=== PATIENT | female | born 1930 | race Caucasian/White ===

== ENCOUNTER 2021-02-12 14:46 | Inpatient (IN) | payer MEDICARE, BC ==
[~2021-02-12] VITALS: Ht 165.1 cm; Wt 50.0 kg
[~2021-02-12 14:46] MED LIST: ANTIVERT 25MG25 MG PO; ATIVAN 0.50.5 MG/TAB PO; ATIVAN PO; BENTYL 20MG20 MG/TAB PO; CEPHALEXIN500 M1 PO; FLAGYL500 MG PO; HYOMAX; IMODIUM 2MG CAPS2 MG PO; IMODIUM2 MG PO; INDERAL LA120 MG PO; INDERAL PO; LUTEIN PO; NEURONTIN300 MG/CAP PO; PRILOSEC 20MG20 MG PO; TYLENOL 325MG325 MG PO; VANCOCIN H125 MG/CAP PO; VERELAN120 MG PO; VITAMIN D PO; ZOLOFT; ZOLOFT 50MG50 MG PO
[2021-02-12 15:25] LABS: BASO % 0.2 % (0.0-2.0); EOS % 0.1 % (0-4.0); GRAN # 10.3 (1.4-6.5); GRAN % 82.5 % (42.2-75.2); HEMATOCRIT 42.8 % (37.0-47.0); HEMOGLOBIN 13.7 g/dl (12.5-16.0); LYMPH # 0.9 (1.2-3.4); LYMPH % 6.8 % (20.0-51.0); MEAN CELL VOLUME 92 fl (80.0-100.0); MEAN CORPUSCULAR HEMOGLOBIN 30 pg (27.0-31.0); MEAN CORPUSCULAR HGB CONC 32 g/dl (33.0-37.0); MONO # 1.3 (0.1-0.6); MONO % 10.2 % (1.7-9.3); PLATELET COUNT 197 K/mm3 (130-400); RED BLOOD COUNT 4.63 M/mm3 (4.10-5.30); REDCELL DISTRIBUTION WIDTH-CV 13.7 % (11.5-14.5)
[2021-02-12 15:33] LABS: INR 1.1 (0.8-3.0); PROTHROMBIN TIME 12.4 SECONDS (9.7-12.8)
[2021-02-12 15:35] LABS: COLLECTION METHOD CLEAN CATCH
[2021-02-12 15:45] LABS: BILIRUBIN,TOTAL 1.1 mg/dL (0.0-1.0); CALCIUM 9.3 mg/dL (8.4-10.2); CREATININE, serum 0.85 (0.52-1.25); TOTAL PROTEIN 6.7 gm/dL (6.4-8.2)
[2021-02-12 15:46] LABS: MUCOUS Present /lpf; PH 5 (5-8); SQUAMOUS EPITHELIAL 0-2 /hpf; URINE APPEARANCE Cloudy; URINE BACTERIA Many /hpf; URINE BILIRUBIN Positive (NEGATIVE); URINE BLOOD 3+ (NEGATIVE); URINE COLOR Amber; URINE GLUCOSE Negative (NEGATIVE); URINE KETONE 1+ (NEGATIVE); URINE LEUKOCYTE ESTERASE Trace (NEGATIVE); URINE NITRATE Negative (NEGATIVE); URINE PROTEIN(semi-quant) 2+ (NEGATIVE); URINE UROBILINOGEN Negative (NEGATIVE)
[2021-02-12 15:54] LABS: TROPONIN-I 0.021 ng/mL (0.000-0.035)
--- NOTE | 2021-02-12 18:02 | NUR ---
PT ACTIVELY HALLUCINATING BUGS IN THE ROOM AND PT THINKING SHE HAS TOILET PAPER IN HER HANDS WHEN SHE DOES NOT, PT DENIES PAIN WHEN ASKED, STATES SHE HAS NOT HAD A BM IN A FEW DAYS, PT HAD RED SPOT ON HER COCCYX BUT BLANCHES, PT HAS REDNESS TO BACK AND MARY ARMS AND KNEES. PT HAS UNSTEADY GAIT, BEDSIDE COMMODE USED X1 ASSIST. CALLED PT PHARMACY FOR ACCURATE MED LIST. ASSESSMENT PERFORMED, FLUIDS INFUSING, NO OTHER NEEDS.
[2021-02-12 18:09] VITALS: BP 107/40; PULSE 71; TEMP 97.9
[2021-02-12 19:33] VITALS: BP 101/51; PULSE 82; TEMP 98
[2021-02-12] MEDS ORDERED: B-121000 MCG PO (19:41)
[2021-02-12] MEDS ORDERED: MASON NATURAL2000 IU PO (19:43)
[2021-02-13 00:02] VITALS: BP 105/41; PULSE 65; TEMP 98
[2021-02-13 03:37] VITALS: BP 108/51; PULSE 76; TEMP 97.9
--- NOTE | 2021-02-13 05:07 | NUR ---
PATIENT HAD VERY RESTFUL NIGHT, WAKING ONLY ON OCCASION WHEN BEING TURNED OR MOVED. PATIENT IS VERY SOFT SPOKEN AND ENJOYS EATING ICE CHIPS IT IS NOTED THAT SHE COUGHED SEVERAL TIMES WHEN EATING ICE CHIPS. PATIENT IS VERY PLESANT AND REMAINS IN GOOD SPIRITS. NO EVIDENCE OF HALLUCINATIONS THIS SHIFT, WAS ABLE TO ANSWER ALL QUESTIONS APPROPRIATELY.
--- NOTE | 2021-02-13 07:14 | NUR ---
Received shift report from STAN Robledo, patient is lying in bed, awake and oriented.
[2021-02-13 07:42] LABS: ALBUMIN 3.5 gm/dL (3.5-5.0); BILIRUBIN,TOTAL 1.1 mg/dL (0.0-1.0); CREATININE, serum 0.84 (0.52-1.25); PHOSPHOROUS 4.3 mg/dL (2.5-4.5); POTASSIUM 3.9 mmol/L (3.4-5.0); TOTAL PROTEIN 6.1 gm/dL (6.4-8.2)
--- NOTE | 2021-02-13 07:45 | NUR ---
Patient is lying in bed inclined on her right side, she is alert and oriented x 3, vss, was repositioned, and ordered breakfast. She reports pain in her right back. Patient presents multiple erythemas in her body. Call [facility] within reach. No further needs right now.
[2021-02-13 07:58] VITALS: BP 98/64; PULSE 72; TEMP 97.5
[2021-02-13 08:09] LABS: BASO % 0.3 % (0.0-2.0); EOS % 0.4 % (0-4.0); GRAN # 8.6 (1.4-6.5); GRAN % 78.8 % (42.2-75.2); HEMATOCRIT 39.5 % (37.0-47.0); HEMOGLOBIN 12.8 g/dl (12.5-16.0); LYMPH # 1.2 (1.2-3.4); MEAN CELL VOLUME 93 fl (80.0-100.0); MEAN CORPUSCULAR HEMOGLOBIN 30 pg (27.0-31.0); MEAN CORPUSCULAR HGB CONC 32 g/dl (33.0-37.0); MEAN PLATELET VOLUME 10.4 fl (7.4-10.4); MONO % 9.2 % (1.7-9.3); PLATELET COUNT 203 K/mm3 (130-400); RED BLOOD COUNT 4.26 M/mm3 (4.10-5.30); REDCELL DISTRIBUTION WIDTH-CV 14.4 % (11.5-14.5)
[2021-02-13 11:44] VITALS: BP 114/48; PULSE 72; TEMP 97.8
--- NOTE | 2021-02-13 11:48 | NUR ---
Flyer Maker attended clinical rounds with the team. Patient is tearful during rounds as she is still grieving the loss of her in late 2019. Following rounds, DAIANA met with patient and two of her children, Alpa (ph#[phone]) and Juan Alberto (ph#[phone]) who are at bedside. Patient lives alone outside of [place] and sees Dr. Redman for primary care. Patient obtains medications from [facility]. Patient reports she has a paid caregiver, Negrita Blackwell who comes out to her home three times a week for half a day to assist with housekeeping, yard work, and grocery shopping. Negrita also picks up patient's medications for her. Patient reports she does not use any DME and is normally independent with ADLS. Patient's daughter Alpa advised that a walker has been suggested, but patient does not feel she needs it. Patient has Advance Directives in EMR. SW reviewed discharge disposition with patient and her children who feel patient would benefit from rehab. SW reviewed options including local SNFs and [facility]. Patient and her children's preferences are 1) [place] [facility] and 2) [place] [facility]. Patient does not want to go to [facility] as that's where her was before he . Patient's children would also prefer patient not go to [facility]. DAIANA left a message for Brodie at [facility] and faxed referral. DAIANA contacted YEHUDA Salmon Director to give consult. Discharge Plan: Referrals out to [place] [facility] and [facility]. Awaiting screens.
[2021-02-13 17:43] VITALS: BP 131/44; PULSE 79; TEMP 98.2
--- NOTE | 2021-02-13 19:05 | NUR ---
Received report from Devang. Patient had just been cleaned due to bowel movement. As per day shift nurse, that was her 4th BM today. Repositioned patient in bed.
[2021-02-13 20:01] VITALS: BP 112/53; PULSE 91; TEMP 98.1
--- NOTE | 2021-02-13 21:05 | NUR ---
Patient is tearful saying she's been accused of not taking her Lorazepam. She said that she thinks she's having hallucinations as she can hear like the sound of an airplane. I told her the sound that was in her room right now is the IV machine and pointed out which one it is. Informed her as well that there are no ordered Lorazepam for her and nobody was accusing her. She said she just wants to sleep tonight. Bed alarm on. Call light within reach.
[2021-02-14] VITALS (7 sets, daily range): BP systolic 137–169; BP diastolic 53–92; PULSE 81–95; TEMP 98–98.4
--- NOTE | 2021-02-14 05:44 | NUR ---
Patient had hallucinations at around 2am. She said she heard voices outside that were talking bad things about her, which are two male voices and a female. Informed her that there are no male staff in our department right now. She is tearful. Reoriented patient. She was able to sleep at around 4am.
[2021-02-14 07:16] LABS: BASO % 0.4 % (0.0-2.0); EOS # 0.2 (0.0-0.7); EOS % 3.2 % (0-4.0); GRAN # 3.9 (1.4-6.5); HEMOGLOBIN 11.1 g/dl (12.5-16.0); LYMPH # 0.9 (1.2-3.4); LYMPH % 15.9 % (20.0-51.0); MEAN CELL VOLUME 89 fl (80.0-100.0); MEAN CORPUSCULAR HEMOGLOBIN 30 pg (27.0-31.0); MEAN CORPUSCULAR HGB CONC 33 g/dl (33.0-37.0); MONO # 0.6 (0.1-0.6); MONO % 11.1 % (1.7-9.3); PLATELET COUNT 158 K/mm3 (130-400); RED BLOOD COUNT 3.75 M/mm3 (4.10-5.30); REDCELL DISTRIBUTION WIDTH-CV 14.2 % (11.5-14.5)
[2021-02-14 07:25] LABS: ALBUMIN 2.8 gm/dL (3.5-5.0); BILIRUBIN,TOTAL 0.8 mg/dL (0.0-1.0); CALCIUM 8.6 mg/dL (8.4-10.2); CREATININE, serum 0.54 (0.52-1.25); POTASSIUM 3.5 mmol/L (3.4-5.0); TOTAL PROTEIN 5.2 gm/dL (6.4-8.2)
[2021-02-14 07:26] LABS: HEMATOCRIT 33.3 % (37.0-47.0)
--- NOTE | 2021-02-14 09:20 | NUR ---
Pt awake and alert upon entry, no C/O pain at this time. Shift assessments complete, left Pt sitting in the recliner, call light in reach.
--- NOTE | 2021-02-14 13:21 | NUR ---
Initial visit; Patient thanked Therapist Physical for looking in on her, offering prayer and God's blessings and to keep her in Therapist Physical's prayers.
--- NOTE | 2021-02-14 16:18 | NUR ---
Unemployment Examiner contacted Melva at [facility] and faxed clinical updates. Melva advised they are able to accept patient. DAIANA attended clinical rounds with the team and advised both the Hospitalist and patient's family that [facility] can accept. Patient's family is agreeable to this and advised they would tour [facility] later today. DAIANA notified [facility] Director that [facility] accepted. Discharge Plan: [facility] SNF
--- NOTE | 2021-02-14 18:10 | NUR ---
Pt resting in the room today, no C/O pain throughout the day. Pt has been up in the recliner and has returned to bed as of this note. Pt ambulates well with walker and minimal assistance. VS have remained stable. No noted hallucinations when with pt during the day.
--- NOTE | 2021-02-14 20:35 | NUR ---
Patient assessed at this time. Alert and oriented x 4. Does not always make needs known. High fall risk precautions in place. Peripheral INT to right forearm flushed. Site without redness, warmth, swelling, and pain. Denies SOB and dyspnea. LS CTA. Respirations even and unlabored. HRR. Telemetry in place: normal sinus. Capillary refill less than 3 seconds. Non-tenting skin turgor. BSAx4. Abdomen soft and non-tender. No edema. Patient has bruises in various stages of healing to back, BUE, and BLE. Patient complaining of insomnia and requested something to help her sleep. Called [facility]. New order for Melatonin received, and given to patient as requested. Voices no further questions, needs, or concerns at this time. Resting in bed with call light within reach.
[2021-02-15] VITALS (8 sets, daily range): BP systolic 128–182; BP diastolic 61–90; PULSE 70–155; TEMP 97.4–98.4
--- NOTE | 2021-02-15 05:47 | NUR ---
Patient has been resting in bed with call light within reach. Voices no questions, needs, or concerns at this time. Reports that she was able to get some resting with the melatonin.
[2021-02-15 06:01] LABS: BASO % 0.3 % (0.0-2.0); EOS # 0.1 (0.0-0.7); EOS % 2.8 % (0-4.0); GRAN # 2.8 (1.4-6.5); GRAN % 70.1 % (42.2-75.2); LYMPH # 0.6 (1.2-3.4); LYMPH % 16.3 % (20.0-51.0); MEAN CELL VOLUME 90 fl (80.0-100.0); MEAN CORPUSCULAR HEMOGLOBIN 30 pg (27.0-31.0); MEAN CORPUSCULAR HGB CONC 33 g/dl (33.0-37.0); MEAN PLATELET VOLUME 10.5 fl (7.4-10.4); MONO # 0.4 (0.1-0.6); MONO % 10.2 % (1.7-9.3); PLATELET COUNT 145 K/mm3 (130-400); RED BLOOD COUNT 3.98 M/mm3 (4.10-5.30); REDCELL DISTRIBUTION WIDTH-CV 14.2 % (11.5-14.5)
[2021-02-15 06:07] LABS: HEMATOCRIT 35.9 % (37.0-47.0)
[2021-02-15 06:14] LABS: CALCIUM 8.6 mg/dL (8.4-10.2); CREATININE, serum 0.42 (0.52-1.25); POTASSIUM 3.1 mmol/L (3.4-5.0)
--- NOTE | 2021-02-15 08:00 | NUR ---
Pt's heart in v-tach, pt resting in bed and asking to use the restroom. ARNALDO Sharp notified and Negrita with RT in room to do EKG. Pt assisted to the restroom. She was standby assist. Assisted back to bed for EKG
--- NOTE | 2021-02-15 12:58 | NUR ---
Follow-up visit; Patient glad to see Clutch Assembler for a visit. Nurse came by so Clutch Assembler wished Lisa well and offered God's blessings.
--- NOTE | 2021-02-15 15:12 | NUR ---
Algology Teacher attended clinical rounds with the team and patient is not ready for discharge today. SW contacted Melva at [facility] and faxed clinical updates. SW contacted patient's son, Juan Alberto who advised the tour yesterday went well and the plan is still for [facility] SNF upon discharge. Discharge Plan: [facility] SNF
--- NOTE | 2021-02-15 15:40 | NUR ---
Report given to Andria RN
[2021-02-16 04:55] VITALS: BP 162/70; PULSE 64; TEMP 97.2
--- NOTE | 2021-02-16 05:34 | NUR ---
PATIENT RESTED QUIETLY IN BED THROUGHOUT THE NIGHT. NO NEW CONCERNS NOTED OR REPORTED BY PATIENT.
--- NOTE | 2021-02-16 07:00 | NUR ---
Report received from STAN Qureshi. pT in bed resting, awake and alert, denies needs, will continue to montior.
[2021-02-16 07:38] VITALS: BP 151/51; PULSE 65; TEMP 97.9
[2021-02-16 08:02] LABS: MEAN CELL VOLUME 91 fl (80.0-100.0); MEAN CORPUSCULAR HEMOGLOBIN 30 pg (27.0-31.0); MEAN CORPUSCULAR HGB CONC 33 g/dl (33.0-37.0); MEAN PLATELET VOLUME 10.4 fl (7.4-10.4); PLATELET COUNT 144 K/mm3 (130-400); RED BLOOD COUNT 3.72 M/mm3 (4.10-5.30); REDCELL DISTRIBUTION WIDTH-CV 14.1 % (11.5-14.5)
[2021-02-16 08:09] LABS: HEMATOCRIT 33.8 % (37.0-47.0)
[2021-02-16 08:22] LABS: CALCIUM 8.5 mg/dL (8.4-10.2); CREATININE, serum 0.43 (0.52-1.25); MAGNESIUM 1.7 mg/dL (1.6-2.3); POTASSIUM 3.7 mmol/L (3.4-5.0)
[2021-02-16] MEDS ORDERED: OMNICEF 300MG300 MG PO (09:29)
[2021-02-16] MEDS ORDERED: MELATONIN5 M1 SL (09:30)
--- NOTE | 2021-02-16 09:38 | NUR ---
DAIANA informed of DC. DAIANA callled [facility] for notification for the discharge. Faxed dc orders awaiting response for transportation. WIll continue update.
--- NOTE | 2021-02-16 10:45 | NUR ---
Assessment charted. Pt c/o pain to neck, soreness from fall and to sacrem, stage 2 found and mepilex applied, pt turning on side to offset pressure and pillows placed. pt anticipating dishcarge to [facility] today, asked terri AHMADI about timeframe and she is waiting on a call back from them. Doing well, will continue to monitor.
--- NOTE | 2021-02-16 11:00 | NUR ---
DAIANA facilitated transfer to [facility] will transfer at 11:30 a.m. SW notifed nurse of transfer plan. Nothing follows.
[2021-02-16 11:11] VITALS: BP 151/51; PULSE 65; TEMP 97.9
--- NOTE | 2021-02-16 11:41 | NUR ---
Report called to [facility] nurse on [address] that will be taking pt. [facility] staff member came and picked up pt in wheelchair. Pt left with some of belongings and rest of belongings were sent with daughter Alpa who took them over to [facility]. INT dc'd,tip intact. Transfer completed for pt to go to rehab, criteria met.
[2021-06-08] MEDS ORDERED: ATIVAN 0.50.5 MG/TAB PO (21:49)
[2021-06-08] MEDS ORDERED: LOMOTIL 0.025 M1 TAB PO (21:50)
[2021-06-08] MEDS ORDERED: COLESTID 1GM1 G PO (21:50)
[2021-06-09] MEDS ORDERED: PRESERVISION1 SGL PO (00:44)
[2021-06-11] MEDS ORDERED: ALDACTONE 25MG25 M1 PO (14:08)
[2021-06-11] MEDS ORDERED: LASIX 20MG TABL20 MG PO (14:09)
[2021-09-04] MEDS ORDERED: NYSTATIN OR100 MU/ML PO (09:10)
[2021-09-04] MEDS ORDERED: COLESTID 1GM1 G PO (09:10)
[2021-09-04] MEDS ORDERED: ALDACTONE 25MG25 M1 PO (09:11)
[2021-09-04] MEDS ORDERED: NORCO 325 MG-51 TAB PO (09:11)
[2021-09-04] MEDS ORDERED: INDERAL LA120 MG PO (09:11)
[2021-09-04] MEDS ORDERED: TYLENOL 325MG325 MG PO (09:11)
[2021-09-04] MEDS ORDERED: DUO-KAPS1 CAP PO (09:12)
[2021-09-04] MEDS ORDERED: MASON NATURAL2000 IU PO (09:12)
[2021-09-04] MEDS ORDERED: PRESERVISION1 SGL PO (09:12)
[2021-09-04] MEDS ORDERED: PRILOSEC 20MG20 MG PO (09:12)
[2021-09-04] MEDS ORDERED: LOMOTIL 0.025 M1 TAB PO (09:12)
[2021-09-04] MEDS ORDERED: B-121000 MCG PO (09:12)
[2021-09-04] MEDS ORDERED: IMODIUM 2MG CAPS2 MG PO (09:13)
[2021-09-04] MEDS ORDERED: ZOLOFT 50MG50 MG PO (09:14)
[2021-09-04] MEDS ORDERED: LASIX 20MG TABL20 MG PO (09:14)
== END 2021-02-16 11:42 | DRG 682 ==
LOC: COL.ER 14:46 → MEDICAL 16:36
PROVIDERS: Emergency Medicine; Physician Assistant; ADMIT Hospitalist
DX: N17.9 Acute kidney failure, unspecified (principal); E43 Unspecified severe protein-calorie malnutrition; M62.82 Rhabdomyolysis; I48.4 Atypical atrial flutter; E87.2 Acidosis; Z68.1 Body mass index [BMI] 19.9 or less, adult; N39.0 Urinary tract infection, site not specified; K21.9 Gastro-esophageal reflux disease without esophagitis; I10 Essential (primary) hypertension; Z20.822 Contact with and (suspected) exposure to COVID-19; D72.829 Elevated white blood cell count, unspecified; D64.9 Anemia, unspecified; F32.9 Major depressive disorder, single episode, unspecified; F41.9 Anxiety disorder, unspecified; R53.81 Other malaise; H35.30 Unspecified macular degeneration; R74.8 Abnormal levels of other serum enzymes; R44.1 Visual hallucinations; E87.6 Hypokalemia; W18.30XA Fall on same level, unspecified, initial encounter; Y93.9 Activity, unspecified; Y92.009 Unspecified place in unspecified non-institutional (private) residence as the place of occurrence of the external cause; Z96.653 Presence of artificial knee joint, bilateral; Z90.710 Acquired absence of both cervix and uterus; Z85.3 Personal history of malignant neoplasm of breast; Z88.2 Allergy status to sulfonamides; Z88.5 Allergy status to narcotic agent; Z88.6 Allergy status to analgesic agent
CPT/HCPCS: 99222-AI; 99232-AI; 99233-AI; 99239; J1650; J3475; J7030; J7120

== ENCOUNTER → 2021-03-01 | Outpatient (CLI) | payer MEDICARE, BC ==
[~2021-03-01] MED LIST changes: +ALDACTONE 25MG25 M1 PO; +B-121000 MCG PO; +COLESTID 1GM1 G PO; +DUO-KAPS1 CAP PO; +LASIX 20MG TABL20 MG PO; +LOMOTIL 0.025 M1 TAB PO; +MASON NATURAL2000 IU PO; +MELATONIN5 M1 SL; +NORCO 325 MG-51 TAB PO; +NYSTATIN OR100 MU/ML PO; +OMNICEF 300MG300 MG PO; +PRESERVISION1 SGL PO
[2021-03-02 08:46] LABS: CALCIUM 7.3 mg/dL (8.4-10.2); CREATININE, serum 0.6 (0.52-1.25); POTASSIUM 4.1 mmol/L (3.4-5.0)
== END ==
LOC: ZLAB.STJ 14:57
PROVIDERS: Family Medicine
DX: I10 Essential (primary) hypertension (principal)

== ENCOUNTER → 2021-03-02 | Outpatient (REF) ==
[2021-03-02 10:06] LABS: CALCIUM 8.9 mg/dL (8.4-10.2); CREATININE, serum 0.72 (0.52-1.25); POTASSIUM 3.7 mmol/L (3.4-5.0)
== END ==
LOC: ZLAB.STJ 09:53
PROVIDERS: Internal Medicine
DX: I10 Essential (primary) hypertension (principal)